=== PATIENT | male | born 1990 | race Caucasian/White ===

== ENCOUNTER 2017-04-04 21:37 | Emergency (ER) | payer OTHER ==
--- NOTE | 2017-05-19 07:03 | ER ---
ADMIT: 04/04/2017 RM/LOC: ER [facility] MR#: [id number] [address] [id number] [place]ON BROWN [address] [place] [address] Emergency Room Report SEX: M AGE: 26 : 1990 DATE: 04/04/2017 ADDENDUM: This patient comes to the ER because he caught his middle and left ring finger on a circular saw prior to arrival. On physical exam, it is on the fat pad of the left 3rd and 4th digit. Because of the circular saw, it is more of a puncture type wound and does not require any stitches. He has good range of motion of the DIP and PIP on those digits. The area was cleaned by the nurse and bandaged, and he was current on his tetanus booster. He is to follow up with his primary as needed. Please see my T-sheet. MANN Webber / Jakob Gaston MD / ryland JOB #: [id number] CC: Jakob Gaston MD, Attending Physician Kirill Torres MD, Family Physician
== END 2017-04-04 22:21 | disposition home or self-care (01) ==
LOC: ER 21:37
DX: S60.413A Abrasion of left middle finger, initial encounter (principal); S60.415A Abrasion of left ring finger, initial encounter; Z98.890 Other specified postprocedural states; Z79.899 Other long term (current) drug therapy; Z88.2 Allergy status to sulfonamides; W31.2XXA Contact with powered woodworking and forming machines, initial encounter; Y92.009 Unspecified place in unspecified non-institutional (private) residence as the place of occurrence of the external cause